=== PATIENT | female | born 1930 | race African-American/Black ===

== ENCOUNTER 2016-04-07 13:17 | Emergency (ER) | payer MEDICARE, MEDICAID ==
[2016-04-07 13:28] VITALS: BMI 23.4
[2016-04-07] MEDS ORDERED: SODIUM CHLORIDE 0.9% 10 ML FLUSH FLUSH PRN (13:42)
[2016-04-07 13:49] VITALS: TEMP 98.1
[2016-04-07 13:49] LABS: AUTOMATED BASOPHIL 0.6 % (0-2); AUTOMATED LYMPH 17.3 % (17-44); AUTOMATED NEUTROPHIL 75.1 % (45-76); MPV 6.9 fL (7.4-10.4)
[2016-04-07 14:02] LABS: BLOOD UREA NITROGEN 18 MG/DL (7-17); CALC CORRECTED 9.9 MG/DL (8.4-10.2); CALCIUM 9.6 MG/DL (8.4-10.2); CALCULATED OSMOLALITY 279 MOs/Kg (270-290); CHLORIDE 106 mEq/L (98-107); GLUCOSE 128 MG/DL (70-99); SODIUM LEVEL 143 mEq/L (137-146); TOTAL PROTEIN 7.5 G/DL (6.3-8.2)
--- NOTE | 2016-04-07 14:10 | EDPRACDOC ---
- General Information Chief Complaint: Neuro Symptoms/Deficits Stated Complaint: SYNCOPE Time Seen by Provider: 04/07/16 13:34 Information Source: Patient, Group Home Home Medications: Home Medications Atorvastatin Calcium [Lipitor] 20 mg PO HS 10/20/12 Cholecalciferol [Vitamin D3 (cholecalciferol)] 400 units PO BID 10/20/12 Diazepam [Valium] 5 mg PO .1HR BEFORE DENTIST PRN 10/20/12 Donepezil HCl [Aricept] 10 mg PO HS 10/20/12 Multivitamins with Iron [Daily Multivitamin with Iron] 1 tab PO DAILY 10/20/12 Amlodipine [Norvasc] 10 mg PO DAILY 10/30/13 Divalproex Sodium [Depakote Sprinkle] 125 mg PO BID 10/30/13 Triamcinolone Acetonide 0 gm TOP BID 10/30/13 Ondansetron HCl [Zofran] 4 mg PO Q4H PRN #30 tablet 04/21/14 Oxycodone Immediate Release [Oxycodone Immediate Release (OxyIR)] 1 tab PO Q4H PRN #60 tablet 04/21/14 Allergies/Adverse Reactions: Allergies Allergy/AdvReac Type Severity Reaction Status Date / Time No Known Allergies Allergy Verified 04/18/14 08:27 - History of Present Illness Onset: today Medications/Treatment [employer] EMS Treatment BLS HPI: PT PRESENTS TODAY WITH REPORTED SYNCOPAL EPISODE FROM [facility]. REPORTEDLY, PT HAD JUST COMPLETED A MAMMOGRAM AND WAS BEING WHEELED AWAY WHEN SHE SLUMPED OVER IN HER CHAIR. PT CURRENTLY A/O PER HER NORMAL. PT SOMEWHAT VERBAL, BUT MOSTLY NOT. SEVERE ALZHEIMER'S DEMENTIA, HOWEVER, PT DOES NOT APPEAR TO BE IN ACUTE DISTRESS. Duration: Minutes Postsyncopal phase:: Reports: Rapid recovery History of: Reports: Syncope Associated Signs/Symptoms: Reports: None - Treatment Prior to ED Arrival Reported Medications/Treatment [employer] EMS Treatment BLS ED Past Medical History - History Reviewed Yes Nurses notes reviewed and agree except as marked - Patient Medical History Neurological History: Reports: Dementia Cardiac History: Reports: Hypertension, Hypercholesterolemia, Syncope Psychological History: Reports: Anxiety, Schizophrenia. Denies: Depression, Substance Use Disorder Systemic History: Reports: Cancer (T2 N0 M0 breast cancer diagnosed March), Anemia - Social Medical History Smoking Status: Never smoker Social History: Denies: Benzodiazipine Use, Substance Use Disorder EDM Review of Systems - Review of Systems ROS Negative Except as Marked: Yes All systems reviewed and were negative except as marked ROS Unobtainable: Yes Hx Limited due to age/level of understanding of patient Neurological: Other (SYNCOPE) - Physical Exam Constitutional: No apparent distress, Alert Oriented to: Unable to Test Last recorded Vital Signs: Last Vital Signs Temp 98.1 F 04/07/16 13:43 Pulse 81 04/07/16 13:43 Resp 18 04/07/16 13:43 BP 141/69 04/07/16 13:43 Pulse Ox 93 04/07/16 13:43 Oxygen Pulse Oxygen Saturation 93 O2 Device Room Air Oxygen Flow Rate Fraction of Inspired Oxygen ( FIO2) - HEENT Head: Normal Eye Exam: Normal Neck: Normal, Denies Pain, Midline - Respiratory/Cardiovascular Respiratory: Normal - CTA Cardiovascular: Normal - GI Palpation: Normal Tenderness: Non tender - Musculoskeletal Back: Normal Extremities: Normal - Integumentary Skin: Normal Lymphatics: Normal - Neurologic Cerebellar: Unable to Test Mood Description: Appropriate - Results 04/07/16 13:39 04/07/16 13:39 WBC 7.3 xk/uL (3.8-10.8) 04/07/16 13:39 RBC 4.48 xM/uL (4.20-5.40) 04/07/16 13:39 Hgb 13.2 g/dL (12.0-16.0) 04/07/16 13:39 Hct 39.2 % (36-47) 04/07/16 13:39 MCV 88 fL (81-99) 04/07/16 13:39 MCH 29.4 pg (27-32) 04/07/16 13:39 MCHC 33.7 g/dl (33-36) 04/07/16 13:39 RDW 13.5 % (11.5-14.5) 04/07/16 13:39 Plt Count 412 xk/uL (130-400) H 04/07/16 13:39 MPV 6.9 fL (7.4-10.4) L 04/07/16 13:39 Neut % (Auto) 75.1 % (45-76) 04/07/16 13:39 Lymph % (Auto) 17.3 % (17-44) 04/07/16 13:39 [place] % (Auto) 6.0 % (3-10) 04/07/16 13:39 Eos % (Auto) 1.0 % (0-5) 04/07/16 13:39 Baso % (Auto) 0.6 % (0-2) 04/07/16 13:39 Absolute Neuts (auto) 5.48 xk/uL (1.7-8.2) 04/07/16 13:39 Absolute Lymphs (auto) 1.24 xk/uL (0.65-4.75) 04/07/16 13:39 Lab Results 04/07/16 13:39 WBC 7.3 RBC 4.48 Hgb 13.2 Hct 39.2 MCV 88 MCH 29.4 MCHC 33.7 RDW 13.5 Plt Count 412 H MPV 6.9 L Neut % (Auto) 75.1 Lymph % (Auto) 17.3 [place] % (Auto) 6.0 Eos % (Auto) 1.0 Baso % (Auto) 0.6 Absolute Neuts (auto) 5.48 Absolute Lymphs (auto) 1.24 - EKG EKG #1 EKG Time: 13:49 -: Yes EKG interpreted by me Rate: bpm: 71 [place]: Normal Rhythm: NSR Block: None Hypertrophy: None ST: Normal Comparison: 02/24/14 - Departure Disposition: Home Condition: Stable Final Diagnosis: Syncope Qualifiers: Syncope type: unspecified Qualified Code(s): R55 - Syncope and collapse Instructions: Syncope (ED) Education/Counseling Given To: Patient, Bakery Clerk Education/Counseling Given Regarding: Diagnosis, Treatment, Follow Up Referrals: Leydi Javier MD [Primary Care Provider] - One Week
[2016-04-07 14:18] LABS: PARTIAL THROMB. TIME 23.8 SEC (22-35); PT-INR 1.1
--- NOTE | 2016-04-07 14:19 | DIRPT ---
CLINICAL DATA: Syncope. History of left breast cancer. History of Alzheimer disease. EXAM: CT HEAD WITHOUT CONTRAST TECHNIQUE: Contiguous axial images were obtained from the base of the skull through the vertex without intravenous contrast. COMPARISON: 04/04/2014 FINDINGS: Stable ventriculomegaly including the temporal horns, likely ex vacuo. 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 Otherwise, the brainstem, cerebellum, cerebral peduncles, thalami, basal ganglia, basilar cisterns, and ventricular system appear within normal limits. No intracranial hemorrhage, mass lesion, or acute CVA. IMPRESSION: 1. Similar appearance of ex vacuo ventriculomegaly. 2. 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 3. No acute intracranial findings. Electronically Signed By: Lee Llanes M.D. On: 04/07/2016 14:17
--- NOTE | 2016-04-07 14:20 | DIRPT ---
CLINICAL DATA: 86-year-old with an acute syncopal episode earlier today associated chest pain, now resolved. EXAM: PORTABLE CHEST 1 VIEW COMPARISON: 04/04/2014 and earlier. FINDINGS: Suboptimal inspiration accounts for crowded bronchovascular markings, especially in the bases, and accentuates the cardiac silhouette. Taking this into account, cardiac silhouette mildly enlarged, unchanged. Thoracic aorta tortuous and atherosclerotic, unchanged. Hilar and mediastinal contours otherwise unremarkable. Lungs clear. Bronchovascular markings normal. Pulmonary vascularity normal. No visible pleural effusions. No pneumothorax. IMPRESSION: Suboptimal inspiration. No acute cardiopulmonary disease. Electronically Signed By: Alan Lim M.D. On: 04/07/2016 14:17
[2016-04-07 15:01] LABS: LEUKOCYTES/URINE TRACE (NEGATIVE); URINE OCCULT BLOOD 1+ (NEG/TRACE); WBC/URINE TNTC (0-5)
[2016-04-07 15:06] LABS: NITRITE/URINE POS (NEGATIVE)
[2016-04-07 15:35] VITALS: BP 125/60; PULSE 67
== END 2016-04-07 15:49 ==
LOC: ED 13:17
DX: R55 Syncope and collapse (principal); G30.9 Alzheimer's disease, unspecified; F02.80 Dementia in other diseases classified elsewhere, unspecified severity, without behavioral disturbance, psychotic disturbance, mood disturbance, and anxiety; I10 Essential (primary) hypertension; E78.00 Pure hypercholesterolemia, unspecified; F41.9 Anxiety disorder, unspecified; F20.9 Schizophrenia, unspecified; Z79.899 Other long term (current) drug therapy
CPT/HCPCS: 36415; 70450; 71010; 80053; 81001; 84484; 85025; 85610; 85730; 87077; 87086; 87186; 93005; 99284